=== PATIENT | female | born 1975 | race Caucasian/White ===

== ENCOUNTER 2017-10-23 09:53 | Day surgery (SDC) | payer BC ==
--- NOTE | 2017-10-23 10:50 | OR ---
Anesthesia Procedure Note - Anesthesia Procedure Note Narrative: Vital Signs - Last Taken Temp 36.5 C 10/23/17 10:02 Pulse 75 10/23/17 10:02 Resp 16 10/23/17 10:02 BP 102/68 10/23/17 10:02 Pulse Ox 100 10/23/17 10:02 10/23/17 10:46 PRE PROCEDURE EVALUATION:: DATE: 10/23/2017 TIME: 1045 INDICATIONS: Bulging disc C5 6 with spinal stenosis. PAST MEDICAL HISTORY: No previous epidural straight injections. EXAM: Lungs clear and equal. Heart rate regular. Patient complains of neck pain and headaches that occur frequently. Patient has been dealing with these symptoms for several years. Procedure risks and benefits were explained and accepted by the patient. ASSESSMENT OF MEDICAL STATUS: No contraindication to cervical epidural steroid injection. PLANNED PROCEDURE : Fluoroscopy-guided epidural injection at C6 7 or C7-T1.
[2017-10-23] MEDS ORDERED: LIDOCAINE HCL/PF 5 ML VIAL IJ ONE (11:46)
[2017-10-23] MEDS ORDERED: DEXAMETHASONE SODIUM PHOSPHATE 10 MG/ML VIAL IJ ONE (11:46)
[2017-10-23] MEDS ORDERED: IOPAMIDOL 20 ML VIAL IJ ONE (11:47)
--- NOTE | 2017-10-23 12:02 | OR ---
Anesthesia Procedure Note - Anesthesia Procedure Note Narrative: Vital Signs - Last Taken Temp 36.5 C 10/23/17 10:02 Pulse 75 10/23/17 10:02 Resp 16 10/23/17 10:02 BP 102/68 10/23/17 10:02 Pulse Ox 100 10/23/17 10:02 10/23/17 11:56 ANESTHESIA PROCEDURE NOTE Date of Procedure: 10/23/2017 Time of procedure: 1145. Performed by: Ede Ching CRNA Mycology Teacher: None. Preprocedure diagnosis: Bulging disc C5 6. Spinal stenosis C5 6. Post procedure diagnosis: Same. Procedure: Epidural Steroid Injection at C7-T1. Indications: Neck pain and headaches.. Findings: See below. Details of the procedure: The patient was brought back to operating room #4. The patient was then placed in the prone position. Upper Back and back of neck was prepped with DuraPrep. Patient was then draped in sterile fashion. Fluoroscopy was utilized to identify cervical and upper thoracic vertebrae. Lidocaine 1% was infiltrated to the skin and subcutaneous tissues at the level of the C 7 T1 interspace. The epidural space was identified using a 20-gauge Tuohy needle with [id number] technique. A total of 1.5 mL of Isovue- 200 contrast dye was injected to confirm needle placement. Dexamethasone 10 mg + 5 mL of 1% preservative-free lidocaine was administered to the epidural space after negative aspiration for blood and CSF. The Tuohy needle was removed intact. A Band-Aid was applied to the patient's back. The patient was then placed in a supine position for 5 minutes before returning to the ambulatory surgical unit. Total fluoroscopy time was 15 seconds. Total dose 0.86 m/gy. EBL: Minimal. Fluids: N/A. Specimen: N/A. Post procedure condition: The patient tolerated the procedure well. No complications were noted. Thank you for this consultation. Ede Ching CRNA
[2017-10-23 12:29] VITALS: BP 102/78
== END 2017-10-23 09:54 | disposition home or self-care (01) ==
LOC: AMB 09:53
PROVIDERS: ATTEND Family Medicine
PROC: 3E0R3BZ Introduction of Anesthetic Agent into Spinal Canal, Percutaneous Approach (ICD-10-PCS; principal; 2017-10-23)
PROC: 3E0R33Z Introduction of Anti-inflammatory into Spinal Canal, Percutaneous Approach (ICD-10-PCS; 2017-10-23)
DX: M50.222 Other cervical disc displacement at C5-C6 level (principal); M48.02 Spinal stenosis, cervical region; Z68.21 Body mass index [BMI] 21.0-21.9, adult